=== PATIENT | female | born 1950 | race Caucasian/White ===

== ENCOUNTER 2017-03-08 18:58 | Emergency (ER) | payer OTHER ==
[~2017-03-08] VITALS: Ht 167.6 cm; Wt 63.5 kg
--- NOTE | 2017-03-08 19:05 | NUR ---
Patient to ER bed 4 to gown for evaluation. Side rails up. Will assume care.
[2017-03-08 19:06] VITALS: BP_SYST 140
--- NOTE | 2017-03-08 19:20 | NUR ---
Patient complaining of presistent productive cough with brown sputum and shortness of breath. Patient complaining also complaining of diffuse, aching, and nonradiating chest pain only when coughing. No other complaints/injuries per patient or as noted. Will continue to monitor.
--- NOTE | 2017-03-08 20:26 | NUR ---
ER at bedside examining patient.
[2017-03-08 20:59] VITALS: BP_SYST 140
--- NOTE | 2017-03-08 20:59 | NUR ---
Patient given written and verbal discharge instructions and verbalizes understanding. ER MD discussed with patient the results and treatment provided. Patient in stable condition. ID arm band removed. Rx of Augmentin, and promethazine given. Patient educated on pain management and to follow up with PMD in 2-3 days. Pain Scale 0/10 Opportunity for questions provided and answered.
== END 2017-03-08 20:59 | disposition home or self-care (01) ==
LOC: SED 18:58
DX: J40 Bronchitis, not specified as acute or chronic (principal); Z96.649 Presence of unspecified artificial hip joint
CPT/HCPCS: 71010; 99283